=== PATIENT | female | born 1955 | race Caucasian/White ===

== ENCOUNTER 2016-10-15 23:29 | Observation (INO) | payer OTHER ==
[~2016-10-15] VITALS: Ht 154.9 cm; Wt 96.9 kg
[~2016-10-15 23:29] MED LIST: Augmentin PO; CHERATUSSIN DA473 ML PO; CIPRO500 MG PO; DELTASONE20 MG PO; FLEXERIL10 MG PO; FLONASE16 GM NS; Fiber Choice PO; GLIMEPIRIDE4 MG PO; GLUCOPHAGE1000 MG PO; KLONOPIN PO; KLONOPIN0.5 M1 PO; NAPROSYN500 MG PO; PERCOCET 5/31 TABLET PO; PREVACID30 MG PO; TRAMADOL HCL50 MG PO; Tylenol Regular Stre PO; Vicodin,Norco 5/325 PO; Vitamin-E PO; ZESTORETIC 20-1 EAC1 PO; ZITHROMAX Z-PA250 MG PO; ZOCOR
[2016-10-16 00:43] LABS: BASOPHIL COUNT 0.1 K/uL (0-0.1); EOSINOPHIL (%) 2.6 % (0-5); EOSINOPHIL COUNT 0.2 K/uL (0-0.3); HEMATOCRIT 40.6 % (36.0-46.0); IMMATURE GRANULOCYTE (%) 0.8 % (0.0-0.7); IMMATURE GRANULOCYTE COUNT 0.1 K/uL; INSTRUMENT ABS NEUTROPHIL CT 4.1 K/uL; LYMPHOCYTE COUNT 3.4 K/uL (1.0-2.8); MCH 29.4 PG (29.0-34.0); MCHC 32.8 G/DL (30.0-36.0); MCV 89.6 FL (83-99); MONOCYTE (%) 8.9 % (3-12); MONOCYTE COUNT 0.8 K/uL (0-0.8); NEUTROPHIL (%) 47.8 % (45-76); NEUTROPHIL COUNT 4.1 K/uL (1.8-6.4); PLATELET COUNT 208 K/uL (156-360); RBC DIS.WIDTH-CV 12.5 % (11.8-14.6); RBC DIS.WIDTH-SD 40.9 % (39-53); RED BLOOD COUNT 4.53 M/uL (3.80-5.20); WHITE BLOOD COUNT 8.6 K/uL (4.1-10.2)
[2016-10-16 00:51] LABS: CHLORIDE 99 mEq/L (99-109); POTASSIUM 4.2 mEq/L (3.7-5.4); SODIUM 138 mEq/L (136-147)
[2016-10-16 00:53] LABS: GLUCOSE 269 mg/dL (70-99)
[2016-10-16 00:55] LABS: ANION GAP 13 MEQ/L (2-14); TOTAL BILIRUBIN 0.2 mg/dL (0.0-1.0)
[2016-10-16 00:57] LABS: ALKALINE PHOSPHATASE 30 IU/L (3-129); GFR ESTIMATE (CALCULATED) 54 mL/min/
[2016-10-16 00:58] LABS: UREA NITROGEN (BUN) 19 mg/dL (9-23)
[2016-10-16 01:09] LABS: TROP-I INTERPRETATION NEGATIVE; TROPONIN-I < 0.01 ng/mL (0.0-0.30)
[2016-10-16] MEDS ORDERED: ZESTORETIC 20-1 EAC1 PO (04:10)
[2016-10-16] MEDS ORDERED: AMARYL4 MG PO (04:12)
[2016-10-16] MEDS ORDERED: FENOFIBRATE160 M1 PO (04:13)
[2016-10-16 06:28] VITALS: BP 105/56
[2016-10-16] MEDS ORDERED: ERGOCALCIF50000 UNIT PO (09:12)
[2016-10-16] MEDS ORDERED: VENTOLIN HFA18 GM IH (09:13)
[2016-10-16] MEDS ORDERED: CLONAZEPAM0.5 MG PO (09:13)
[2016-10-16 11:51] VITALS: BP 110/68
[2016-10-16 15:42] LABS: ADD MIUA? NO; BILIRUBIN NEGATIVE; BLOOD NEGATIVE; COLOR YELLOW ((YELLOW)); GLUCOSE (STRIP) >=500; KETONES NEGATIVE; LEUKOCYTES NEGATIVE; NITRITE NEGATIVE; PROTEIN (STRIP) NEGATIVE; SPECIFIC GRAVITY 1.018 (1.000-1.030); UCUL ADDED? NO; UROBILINOGEN 0.2 MG/DL (0.2-1.0)
[2016-10-16 20:19] VITALS: BP 132/66
[2016-10-17 00:07] VITALS: BP 146/82
[2016-10-17 03:35] VITALS: BP 128/64
[2016-10-17 05:47] LABS: HEMATOCRIT 43.3 % (36.0-46.0); MCH 29.1 PG (29.0-34.0); MCHC 32.3 G/DL (30.0-36.0); MEAN PLAT.VOLUME 10.8 uM^3 (9.5-12.4); PLATELET COUNT 209 K/uL (156-360); RBC DIS.WIDTH-CV 12.6 % (11.8-14.6); RBC DIS.WIDTH-SD 41.1 % (39-53); RED BLOOD COUNT 4.81 M/uL (3.80-5.20); WHITE BLOOD COUNT 7.5 K/uL (4.1-10.2)
[2016-10-17 05:58] LABS: ANION GAP 12 MEQ/L (2-14); CHLORIDE 101 MEQ/L (99-109); GFR ESTIMATE (CALCULATED) > 59 mL/min/; GLUCOSE 180 mg/dL (70-99); MAGNESIUM 1.4 mg/dl (1.3-2.7); POTASSIUM 4.1 MEQ/L (3.7-5.4); SAMPLE HEMOLYSIS CHECK 2; SAMPLE ICTERIC CHECK 0; SAMPLE LIPEMIA CHECK 0; SODIUM 138 MEQ/L (136-147); UREA NITROGEN (BUN) 14 mg/dL (9-23)
[2016-10-17 07:26] VITALS: BP 132/70
== END 2016-10-17 13:07 | disposition home or self-care (01) ==
LOC: EME → EDBD 23:29 → EME 23:29 → EDOF 10-16 05:18 → ENRESERV 10-16 05:19 → 5WEST 10-16 06:16
PROVIDERS: Emergency Medicine; Hospitalist
DX: T42.6X1A Poisoning by other antiepileptic and sedative-hypnotic drugs, accidental (unintentional), initial encounter (principal); T43.591A Poisoning by other antipsychotics and neuroleptics, accidental (unintentional), initial encounter; T46.5X1A Poisoning by other antihypertensive drugs, accidental (unintentional), initial encounter; I10 Essential (primary) hypertension; E78.5 Hyperlipidemia, unspecified; E11.9 Type 2 diabetes mellitus without complications; J45.909 Unspecified asthma, uncomplicated; D75.1 Secondary polycythemia; M48.00 Spinal stenosis, site unspecified; G65.0 Sequelae of Guillain-Barre syndrome; F32.9 Major depressive disorder, single episode, unspecified; Z79.84 Long term (current) use of oral hypoglycemic drugs; F41.9 Anxiety disorder, unspecified; Z87.891 Personal history of nicotine dependence; Z90.49 Acquired absence of other specified parts of digestive tract
CPT/HCPCS: 80048; 80053; 80164; 81003; 83735; 84484; 85025; 85027; 93005; 99281; 99285; G0378; J7030; J7040